=== PATIENT | male | born 1975 | race Caucasian/White ===

== ENCOUNTER 2017-02-26 13:48 | Outpatient (CLI) | payer OTHER ==
--- NOTE | 2017-02-26 15:52 | DIAGNOSTIC IMAGING REPORT ---
PROCEDURE: US ABDOMEN ULTRASOUND-COMPLETE INDICATION: HEP C TECHNIQUE: Bautista scale and color Doppler sonographic images of the abdomen were obtained without comparison. COMPARISON: None. FINDINGS: The liver is mildly enlarged and demonstrates increased echogenicity. No mass or intrahepatic biliary dilatation. The gallbladder is surgically absent. No pericholecystic fluid or Nye sign. The extrahepatic common duct is normal measuring 5.2 mm. The visualized pancreas is normal without ductal dilatation or peripancreatic fluid collection. The abdominal aorta is normal in its course and caliber. The retrohepatic inferior vena cava is patent. There is appropriate hepatopetal flow in the portal vein. The right kidney measures 12.2 cm in length. The left kidney measures 13 cm in length. Both kidneys demonstrate normal morphology and cortical thickness without hydronephrosis, cyst, solid mass, or shadowing calculus. Color Doppler imaging demonstrates normal blood flow in each kidney. The spleen is normal in size measuring 11.1 cm in length. There is no perihepatic or perisplenic ascites. IMPRESSION: 1. Mildly enlarged dense fatty liver.
== END 2017-02-26 23:00 ==
LOC: US SRH 13:48
DX: B19.20 Unspecified viral hepatitis C without hepatic coma (principal); K76.0 Fatty (change of) liver, not elsewhere classified